=== PATIENT | male | born 1945 | race Caucasian/White ===

== ENCOUNTER 2017-12-30 12:36 | Outpatient (CLI) | payer MEDICARE ==
--- NOTE | 2017-12-30 14:03 | RAD ---
LEFT KNEE 4 VIEWS: HISTORY: Left knee pain, osteoarthritis. FINDINGS: Degenerative changes are seen manifested by tricompartmental osteophyte formation and joint space palak rowing. No fracture, dislocation, or bony destruction is seen. IMPRESSION: Left knee osteoarthritis. POS: [facility]
--- NOTE | 2017-12-30 14:05 | RAD ---
RIGHT KNEE 4 VIEWS: HISTORY: Right knee pain, osteoarthritis. FINDINGS: Tricompartmental degenerative change is seen manifested by osteophyte formation and joint space narro wing. No fracture, dislocation, or bony destruction is seen. IMPRESSION: Right knee osteoarthritis. POS: [facility]
== END 2017-12-30 12:37 | disposition home or self-care (01) ==
LOC: MADRAD 12:36
PROVIDERS: ATTEND Family Medicine
DX: M17.0 Bilateral primary osteoarthritis of knee (principal)

== ENCOUNTER 2018-02-27 16:10 | Emergency (ER) | payer MEDICARE ==
[2018-02-27 17:13] LABS: Bilirubin Negative (Negative); Blood, Urine Negative (Negative); Clarity Clear (Clear); Glucose, Urine (Dipstick) >=1000 mg/dL (Negative); Leukocyte Negative (Negative); Nitrite Negative (Negative); Protein, Urine (Dipstick) Negative (Neg-Trace); Urobilinogen 0.2 mg/dL (0.2-1.0)
[2018-02-27 17:14] LABS: #Eosinphils 0.2 thou/uL (0.0-0.7); #Lymphocytes 1.4 thou/uL (1.20-3.40); #Monocytes 0.5 thou/uL (0.11-0.59); #Neutrophils 4.3 thou/uL (1.40-6.50); %Basophils 0.6 % (0.0-1.0); %Eosinophils 2.7 % (0.0-10.0); %Lymphocytes 21.8 % (21.0-51.0); %Monocytes 7.4 % (0.0-10.0); %Neutrophils 67.5 % (42.0-75.0); Mean Corpuscular HGB CONC 34.4 g/dL (32.0-36.0); Mean Corpuscular Hemoglobin 30.5 pg (27.0-31.0); Mean Corpuscular Volume 88.7 fL (78.0-98.0); Mean Platelet Volume 6.7 fL (7.4-10.4); Platelet Count 190 thou/uL (130-400); Red Blood Cell (RBC) Count 3.93 mill/uL (4.70-6.10); White Blood Cell (WBC) Count 6.3 thou/uL (4.8-10.8)
[2018-02-27 17:29] LABS: ALT (SGPT) 21 U/L (8-55); AST (SGOT) 15 U/L (5-34); Albumin 3.3 g/dL (3.4-4.8); Alkaline Phosphatase 119 U/L (40-150); Anion Gap 20 mmol/L (10-20); BUN (Urea Nitrogen) 25 mg/dL (8.4-25.7); Bilirubin, Total 0.5 mg/dL (0.2-1.2); Calc. Creatinine Clearance 0 mL/min (70-130); Calcium 9.2 mg/dL (7.8-10.44); Carbon Dioxide 25 mmol/L (23-31); Chloride 93 mmol/L (98-107); Estimated GFR-MDRD 29; Globulin 3.1 g/dL (2.4-3.5); Protein, Total 6.4 g/dL (5.8-8.1); Sodium 135 mmol/L (136-145)
[2018-02-27 17:31] LABS: CKMB 1.3 ng/mL (0-6.6); Troponin I 0.019 ng/mL (< 0.028)
[2018-02-27 17:38] LABS: Glucose 717 mg/dL (80-115); Potassium 2.8 mmol/L (3.5-5.1)
[2018-02-27] MEDS ORDERED: NS 0.9% w/ 40 MEQ KCL 1,000 ML IV ONE (17:44)
[2018-02-27] MEDS ORDERED: Nitroglycerin 2% Ointment 1 INCH/1 GM Packet ONE (17:53)
[2018-02-27] MEDS ORDERED: Potassium Chloride 20 MEQ TAB ONE (18:10)
== END 2018-02-27 19:35 | disposition short-term general hospital (02) ==
LOC: MADERS 16:10
DX: E11.00 Type 2 diabetes mellitus with hyperosmolarity without nonketotic hyperglycemic-hyperosmolar coma (NKHHC) (principal); E87.6 Hypokalemia; N17.9 Acute kidney failure, unspecified; I10 Essential (primary) hypertension; Z79.899 Other long term (current) drug therapy; Z79.82 Long term (current) use of aspirin
CPT/HCPCS: 36415; 80053; 81003; 82553; 83735; 84443; 84484; 85025; 87086; 93005; 96360; 96361